=== PATIENT | female | born 1945 | race Caucasian/White ===

== ENCOUNTER 2017-09-03 17:52 | Emergency (ER) | payer MEDICARE ==
[~2017-09-03] VITALS: Ht 165.1 cm; Wt 85.3 kg
[~2017-09-03 17:52] MED LIST: AMLODIPINE BESYL5 MG PO; ASPIR 8181 MG PO; METFORMIN HCL500 M1 PO; METOPROLOL TART25 MG PO; PAROXETINE HCL10 MG PO; PRAVASTATIN SOD80 MG
[2017-09-03] MEDS ORDERED: METOPROLOL SUCC50 MG PO (18:14)
[2017-09-03] MEDS ORDERED: ALLOPURINOL300 MG PO (18:15)
[2017-09-03] MEDS ORDERED: LEVOTHYROXINE25 MCG PO (18:15)
[2017-09-03] MEDS ORDERED: NITROGLYCERIN0.4 MG SL (18:17)
--- NOTE | 2017-09-04 14:33 | EKG ---
[facility] [address] [place] [address] Signed Normal sinus rhythm Inferior infarct (cited on or before 04-DEC-2015) Cannot rule out Anterior infarct (cited on or before 04-DEC-2015) Abnormal ECG When compared with ECG of 04-DEC-2015 13:05, ST now depressed in Anterior leads Confirmed by OLAF CARRERO MD ([id number] on 09/04/2017 2:33:17 PM Electronically Signed By: OLAF CARRERO MD 09/04/17 1433 PATIENT NAME: JOSHUA BRIZUELA Electrocardiogram DATE OF : 47 PHYSICIAN: OLAF CARRERO MD REPORT #: [id number] REPORT IS CONFIDENTIAL AND NOT TO BE RELEASED WITHOUT AUTHORIZATION
== END 2017-09-03 21:15 | disposition home or self-care (01) ==
LOC: ED 17:52
DX: R07.9 Chest pain, unspecified (principal); I25.2 Old myocardial infarction; F41.9 Anxiety disorder, unspecified; R73.03 Prediabetes; Z88.0 Allergy status to penicillin; Z88.2 Allergy status to sulfonamides; Z88.5 Allergy status to narcotic agent; Z91.09 Other allergy status, other than to drugs and biological substances; Z79.899 Other long term (current) drug therapy; Z79.82 Long term (current) use of aspirin; Z79.84 Long term (current) use of oral hypoglycemic drugs
CPT/HCPCS: 71045; 80053; 84484; 85025; 93005; 93010; 96374; 99284; J3010